=== PATIENT | male | born 1985 | race Two or more races ===

== ENCOUNTER 2020-07-01 07:32 | Emergency (ER) | payer SELFPAY ==
[~2020-07-01] VITALS: Ht 188 cm; Wt 78.6 kg
[2020-07-01] MEDS ORDERED: LORazepam 1MG TABLET PO ONE (08:30)
--- NOTE | 2020-07-01 08:30 | NUR ---
Pt reports auditory hallucinations. States he has been dealing with this since 2008. Denies medication use or psych consults in the past. Pt is homeless. Pt reports no HI/SI. Hallucinations are telling him to "help people". Pt is slow to respond, seems paranoid and distracted. Pt is cooperative, but anxious. Ativan ordered per MD and administered to aid in anxiety. Pt has no physical complaints. Pt reports no drug use. WCTM.
[2020-07-01] MEDS ORDERED: LORazepam 1MG TABLET ONE (08:37)
[2020-07-01 09:39] LABS: BASOPHILS % (AUTO) 0 % (0-1); EOSINOPHILS % (AUTO) 0 % (1-7); LYMPHOCYTES % (AUTO) 19 % (22-44); MEAN CORPUSCULAR HEMOGLOBIN 30.8 pg (27.5-34.5); MEAN CORPUSCULAR HGB CONC 33.3 g/dL (33.2-36.2); MEAN PLATELET VOLUME 7.3 fL (7.4-10.4); MONOCYTES % (AUTO) 5 % (2-9); NEUTROPHILS % (AUTO) 76 % (42-75); PLATELET COUNT 357 x10^3/uL (130-400); RED BLOOD COUNT 4.79 x10^6/uL (4.38-5.82); RED CELL DISTRIBUTION WIDTH 14.8 % (9.4-14.8)
[2020-07-01 09:42] LABS: ALANINE AMINOTRANSFERASE 36 U/L (12-78); ALBUMIN 4.2 g/dL (3.4-5.0); ANION GAP 6 mmol/L (5-15); CALCIUM 9.5 mg/dL (8.5-10.1); CHLORIDE 106 mmol/L (98-107); CREATININE 1.06 mg/dL (0.7-1.3)
[2020-07-01 09:43] LABS: MD NO
[2020-07-01 09:44] LABS: ALKALINE PHOSPHATASE 91 U/L (45-117); BILIRUBIN,TOTAL 0.3 mg/dL (0.2-1.0); TOTAL PROTEIN 8.3 g/dL (6.4-8.2)
[2020-07-01 09:48] LABS: SALICYLATE LEVEL < 1.7 mg/dL (2.8-20.0)
--- NOTE | 2020-07-01 10:46 | NUR ---
Pt laying in bed. Pt seems more calm after ativan dose. Pt has no complaints at this time.
[2020-07-01 10:57] LABS: MICROSCOPIC NOT IND
[2020-07-01 11:05] LABS: AMPHETAMINE SCREEN, URINE Positive (Negative); BARBITURATE SCREEN, URINE Negative (Negative); BENZODIAZEPINE SCREEN, URINE Negative (Negative); CANNABINOID SCREEN, URINE Negative (Negative); COCAINE SCREEN, URINE Negative (Negative); METHADONE SCREEN, URINE Negative (Negative); OPIATE SCREEN, URINE Negative (Negative)
--- NOTE | 2020-07-01 11:20 | NUR ---
Ally valenzuela in [facility] - 07/01/20 at 1154 by [email or web address] Meal ordered for pt.
--- NOTE | 2020-07-01 12:23 | NUR ---
Leidy mayer ordered for pt.
--- NOTE | 2020-07-01 13:27 | NUR ---
pt given jemaría. ambulatory at discharge. vss. pt informed to use resources provided by manager social responsibility. pt verbalized understanding.
[2020-07-01 13:31] VITALS: BP 152/96
== END 2020-07-01 13:33 | disposition home or self-care (01) ==
LOC: ED 09:22
DX: F15.10 Other stimulant abuse, uncomplicated (principal); Z72.9 Problem related to lifestyle, unspecified
CPT/HCPCS: 36415; 80053; 80307; 81003; 85025; 99283